=== PATIENT | female | born 1960 | race Caucasian/White ===

== ENCOUNTER → 2016-08-16 | Outpatient (CLI) | payer MEDICAID ==
[~2016-08-16] MED LIST: GADOBUTROL 10 ML VIAL IVP ONE
--- NOTE | 2016-08-16 18:03 | MR ---
MRI of the Abdomen (Without and With Contrast) at 1043 hours Clinical Indications: History of hepatitis C. Lesion seen on ultrasound within the liver. COMPARISON: Ultrasound July 20, 2016 Technique: Precontrast 2D FIESTA axial , FSE T2 breath-hold axial and coronal, in and out of phase a xial imaging, and T1 LAVA fat-suppressed imaging. Pre- and post contrast axial T1 fat-suppressed imag es before and at 1 minute, 3 minutes, 5 minutes and 10 minutes after 6 mL Gadavist were injected intr avenously without complication using a power injector. Findings: A 1 cm lesion is seen in the mid right lobe of the liver corresponding to the abnormality s een on ultrasound. This lesion has increased signal intensity on T2-weighted imaging. There is mild p eripheral enhancement which fills in on the more delayed imaging with an appearance suggestive of a b enign hemangioma. A 1 cm simple cyst is seen more inferiorly in the right lobe of the liver. No suspi cious liver lesion is visualized. Spleen is unremarkable. Both adrenal glands are normal in size and appearance. Pancreas is normal in signal intensity without evidence for mass. Both kidneys enhance no rmally without evidence for mass or hydronephrosis. No significant abnormal lymphadenopathy. Impression: 1 cm benign hemangioma right lobe of the liver. 1 cm benign hepatic cyst inferior right lobe of the liver
== END ==
LOC: FIMAGING 10:19
PROVIDERS: ATTEND Internal Medicine Gastroenterology
DX: B18.2 Chronic viral hepatitis C (principal); K76.89 Other specified diseases of liver
CPT/HCPCS: A9585

== ENCOUNTER 2017-11-10 12:12 | Emergency (ER) | payer MEDICAID ==
[2017-11-10] MEDS ORDERED: ONDANSETRON DISINTEGRATING 4 MG TAB PO ONE (12:19)
--- NOTE | 2017-11-10 14:21 | EDPHY ---
General Time Seen by Provider: 11/10/17 14:11 Narrative: CHIEF COMPLAINT: Abdominal pain HISTORY OF PRESENT ILLNESS: Patient presents with complaints of abdominal pain, decreased appetite decreased insomnia. She reports long history of alcohol abuse, attempting to discontinue the slowly. She originally stated that she drinks 1 glass of wine per night, but now admits that it is actually 1-2 bottles per day of worn. She last had intake of alcohol round 1:30 a.m. After that her symptoms worsen, that she had a drink this morning around 6:45 a.m.. She has had some vomiting. She has epigastric abdominal pain. It is worse with palpation and movement. Minimal improvement rest. No chest pain or shortness of breath. No cough. No headache, neck pain or stiffness, fever chills. No trauma or injury. No previous abdominal surgeries other than D and C remotely. No other associated complaints or modifying factors REVIEW OF SYSTEMS: Ten systems reviewed and are negative unless otherwise noted in the HPI PCP: None currently SPECIALISTS: None PAST MEDICAL HISTORY: Alcohol abuse, hep C orthopedic injuries, anxiety PAST SURGICAL HISTORY: Right wrist surgery remotely. ENT remotely. SOCIAL HISTORY: Daily alcohol use. Denies any drug use. FAMILY HISTORY: Noncontributory EXAMINATION General Appearance: Alert, no distress. Well-developed well-nourished. Head: normocephalic, atraumatic Eyes: Pupils equal and round, no conjunctival pallor or injection ENT, Mouth: Mucous membranes moist. Airway patent Neck: Normal inspection, supple, non-tender Respiratory: Lungs are clear to auscultation. No wheeze, rhonchi or crackles Cardiovascular: Regular rate and rhythm. No murmur. Gastrointestinal: Abdomen is soft and nondistended. There is tenderness in the epigastrium, right upper quadrant left upper quadrant. Back: non-tender, no bony abnormalities Neurological: GCS 15. A&O, nonfocal, mild tremor but normal mentation. Strength is symmetric in all 4 limbs. No pronator drift. Normal finger-to- nose. Skin: Warm and dry, no rash. No petechiae or purpura Extremities: Nontender, no pedal edema Psychiatric: Mood and affect normal DIFFERENTIAL DIAGNOSES: Including but not limited to gastritis, enteritis, colitis, gastroenteritis, cholecystitis, cholelithiasis, alcohol withdrawal, DT MDM: 2:15 p.m. Abdominal pain with nausea vomiting and some diarrhea. She also has history of alcohol use and may be withdrawing from this. Her vital signs are stable with no signs of delirium tremens or encephalopathy. 2:50 p.m. Patient re-evaluated. She is now admitting to 1-2 bottles of wine per day with abrupt cessation this morning. She still has no chest pain. Laboratory studies are pending. 3:00 p.m. CBC reveals hemoconcentration no leukocytosis. Chemistry is consistent with her alcohol abuse but does have some elevation of the total bilirubin. Urinalysis pending. I will discuss with Dr. Cabral. 3:30 p.m. Initial CIWA score is 5. I have discussed with Dr. Cabral. We will proceed with CT scan abdomen pelvis. 4:30 p.m. Notified by radiologist. CT scan reveals some abnormalities in the liver that appear to be chronic from previous MRI. Appendix is normal appearing. No other acute finding. 4:45 p.m. Patient re-evaluated. She says she is feeling much better but a little shaky. I do not appreciate any tremor. I discussed CT scan findings. I discussed the mildly abnormal liver function test. I offered transportation to the [facility] for monitor detoxification. She has declined this. Her serum alcohol level is negative. She wants to go home. She says her pain is tolerable. We discussed the risks, benefits and alternatives including alcohol withdrawal with subsequent delirium tremens and/or seizure activity. I also discussed that she needs to have her liver enzymes rechecked soon with her primary care physician. She says she is willing to assume this risk and has Ativan at home to avoid this scenario. I do feel she is capable making this decision at this time. I have ordered 1 more dose of IV Ativan to be given before she is discharged home and she has a ride who will be at bedside to take her home. We discussed ED precautions for any return of her abdominal pain, vomiting, chest pain, or alcohol withdrawal symptoms. She is comfortable with this and she is discharged home stable condition. SUPERVISION: Patient was independently examined, but I discussed the case with my secondary supervising physician Dr. Cabral - Diagnostics Imaging Results: Imaging Impressions Abdomen CT 11/10/17 15:43 Impression: 1. Sigmoid diverticulosis without diverticulitis. 2. No CT evidence of appendicitis, abscess or bowel obstruction. 3. No new hepatic lesions or biliary obstruction. 4. Nonobstructing right nephrolithiasis. 5. Vertebral compression fractures with prior thoracolumbar fusion, similar to previous study. 6. No pneumoperitoneum or drainable abscess. Findings and recommendations discussed with Emergency Department physician, José Miguel Wilson, at 1625 hour, 11/10/2017. Final report concurs with initial preliminary interpretation. - History Smoking Status: Light smoker - Objective Vital Signs: Initial Vital Signs Temperature (C) 99.0 F 11/10/17 12:16 Heart Rate 91 11/10/17 12:16 Respiratory Rate 26 H 11/10/17 12:16 Blood Pressure 150/99 H 11/10/17 12:16 O2 Sat (%) 100 11/10/17 12:16 O2 Delivery Mode Nasal Cannula O2 (L/minute) 2 Allergies/Adverse Reactions: amoxicillin Allergy (Verified 02/02/16 15:45) Penicillins Allergy (Verified 02/22/14 19:59) sulfamethoxazole [From Bactrim] Allergy (Verified 02/02/16 15:45) trimethoprim [From Bactrim] Allergy (Verified 02/02/16 15:45) Home Medications: Medication Instructions Recorded Ativan Unk Dose 02/21/14 Citalopram Unk Dose 02/21/14 Trazodone Unk Dose 02/21/14 Famotidine [Pepcid 20 MG (*)] 20 mg PO BID #20 tab 11/10/17 Sucralfate [Carafate Oral Liquid 100 mg PO TID #240 ml 11/10/17 100 mg/ml] Laboratory Results: Laboratory Results 11/10/17 14:23 11/10/17 14:23 11/10/17 11/10/17 11/10/17 16:20 15:29 14:33 WBC RBC Hgb Hct MCV MCH MCHC RDW Plt Count MPV Neut % (Auto) Lymph % (Auto) Mercer % (Auto) Eos % (Auto) Baso % (Auto) Nucleat RBC Rel Count Absolute Neuts (auto) Absolute Lymphs (auto) Absolute Monos (auto) Absolute Eos (auto) Absolute Basos (auto) Absolute Nucleated RBC Immature Gran % Immature Gran # Sodium Potassium Chloride Carbon Dioxide Anion Gap BUN Creatinine Estimated GFR Glucose Calcium Phosphorus Total Bilirubin Conjugated Bilirubin Unconjugated Bilirubin AST ALT Alkaline Phosphatase Total Protein Albumin Lipase Beta HCG, Qual Urine Color YELLOW Urine Appearance CLEAR Urine pH 6.0 (5.0-7.5) Ur Specific [place] 1.023 (1.002-1.030) Urine Protein NEGATIVE (NEGATIVE) Urine Ketones 1+ H (NEGATIVE) Urine Blood NEGATIVE (NEGATIVE) Urine Nitrate NEGATIVE (NEGATIVE) Urine Bilirubin NEGATIVE (NEGATIVE) Urine Urobilinogen NEGATIVE EU EU (0.2-1.0) Ur Leukocyte Esterase NEGATIVE (NEGATIVE) Urine Glucose NEGATIVE (NEGATIVE) Nasal Influenza A PCR NEGATIVE FOR FLU A (NEGATIVE) Nasal Influenza B PCR NEGATIVE FOR FLU B (NEGATIVE) Ethyl Alcohol < 10 mg/dL mg/dL (0-10) 11/10/17 11/10/17 11/10/17 14:23 14:23 14:23 WBC 7.24 10^3/uL 10^3/uL (3.80-9.50) RBC 5.66 10^6/uL H 10^6/uL (4.18-5.33) Hgb 18.4 g/dL H g/dL (12.6-16.3) Hct 51.7 % H % (38.0-47.0) MCV 91.3 fL fL (81.5-99.8) MCH 32.5 pg pg (27.9-34.1) MCHC 35.6 g/dL g/dL (32.4-36.7) RDW 12.6 % % (11.5-15.2) Plt Count 325 10^3/uL 10^3/uL (150-400) MPV 9.0 fL fL (8.7-11.7) Neut % (Auto) 82.6 % H % (39.3-74.2) Lymph % (Auto) 11.9 % L % (15.0-45.0) Mercer % (Auto) 3.6 % L % (4.5-13.0) Eos % (Auto) 0.8 % % (0.6-7.6) Baso % (Auto) 0.7 % % (0.3-1.7) Nucleat RBC Rel Count 0.0 % % (0.0-0.2) Absolute Neuts (auto) 5.98 10^3/uL 10^3/uL (1.70-6.50) Absolute Lymphs (auto) 0.86 10^3/uL L 10^3/uL (1.00-3.00) Absolute Monos (auto) 0.26 10^3/uL L 10^3/uL (0.30-0.80) Absolute Eos (auto) 0.06 10^3/uL 10^3/uL (0.03-0.40) Absolute Basos (auto) 0.05 10^3/uL 10^3/uL (0.02-0.10) Absolute Nucleated RBC 0.00 10^3/uL 10^3/uL (0-0.01) Immature Gran % 0.4 % % (0.0-1.1) Immature Gran # 0.03 10^3/uL 10^3/uL (0.00-0.10) Sodium 136 mEq/L mEq/L (135-145) Potassium 4.2 mEq/L mEq/L (3.5-5.2) Chloride 96 mEq/L L mEq/L (97-110) Carbon Dioxide 19 mEq/l L mEq/l (22-31) Anion Gap 21 mEq/L H mEq/L (8-16) BUN 22 mg/dL mg/dL (7-23) Creatinine 0.6 mg/dL mg/dL (0.6-1.0) Estimated GFR > 60 Glucose 118 mg/dL H mg/dL (70-100) Calcium 11.5 mg/dL H mg/dL (8.5-10.4) Phosphorus 2.1 mg/dL L mg/dL (2.5-4.5) Total Bilirubin 1.6 mg/dL H mg/dL (0.1-1.4) Conjugated Bilirubin 0.5 mg/dL mg/dL (0.0-0.5) Unconjugated Bilirubin 1.1 mg/dL mg/dL (0.0-1.1) AST 179 IU/L H IU/L (14-46) ALT 164 IU/L H IU/L (9-52) Alkaline Phosphatase 178 IU/L H IU/L (38-126) Total Protein 10.7 g/dL H g/dL (6.3-8.2) Albumin 5.6 g/dL H g/dL (3.5-5.0) Lipase 207 IU/L IU/L (23-300) Beta HCG, Qual NEGATIVE Urine Color Urine Appearance Urine pH Ur Specific [place] Urine Protein Urine Ketones Urine Blood Urine Nitrate Urine Bilirubin Urine Urobilinogen Ur Leukocyte Esterase Urine Glucose Nasal Influenza A PCR Nasal Influenza B PCR Ethyl Alcohol Medications Given: Discontinued Medications Sodium Chloride (Ns) 1,000 mls @ 0 mls/hr IV ONCE ONE; Wide Open PRN Reason: Protocol Stop: 11/10/17 14:26 Last Admin: 11/10/17 14:26 Dose: 1,000 mls Sodium Chloride (Ns) 1,000 mls @ 0 mls/hr IV EDNOW ONE; Wide Open PRN Reason: Protocol Stop: 11/10/17 14:48 Last Admin: 11/10/17 15:30 Dose: 1,000 mls Sodium Chloride (Ns) 1,000 mls @ 0 mls/hr IV EDNOW ONE; Wide Open PRN Reason: Protocol Stop: 11/10/17 15:32 Last Admin: 11/10/17 17:08 Dose: Not Given Lorazepam (Ativan Injection) 2 mg IVP EDNOW ONE Stop: 11/10/17 14:48 Last Admin: 11/10/17 14:54 Dose: 2 mg Ondansetron HCl (Zofran Odt) 4 mg PO EDNOW ONE Stop: 11/10/17 12:20 Last Admin: 11/10/17 12:20 Dose: 4 mg Departure - Departure Disposition: Home, Routine, Self-Care Clinical Impression: Alcohol abuse, Elevated liver enzymes Alcoholic gastritis Qualifiers: Chronicity: acute Gastritis bleeding: without bleeding Qualified Code(s): K29.20 - Alcoholic gastritis without bleeding Condition: Good Instructions: Gastritis (ED), Clear Liquid Diet (ED), Abuse of Alcohol (ED) Additional Instructions: 1. Clear liquid diet for the next 24-48 hours 2. Return to emergency department if you change her mind on monitored detoxification at the [facility] 3. Contact her primary care physician regarding alcohol cessation, abnormal liver function test 4. Return to emergency department for any chest pain, shortness of breath, return of your abdominal pain, vomiting or diarrhea Referrals: Laine Baker MD [Primary Care Provider] - As per Instructions (2-3 days for repeat liver function test) Prescriptions: Famotidine [Pepcid 20 MG (*)] 20 mg PO BID #20 tab Sucralfate [Carafate Oral Liquid 100 mg/ml] 100 mg PO TID #240 ml
[2017-11-10] MEDS ORDERED: NS 1,000 ML IV ONE ×3 (14:25→15:31)
[2017-11-10 14:31] LABS: PLATELET COUNT 325 10^3/uL (150-400)
[2017-11-10] MEDS ORDERED: LORazepam 2 MG/ML INJ IVP ONE ×2 (14:47→17:08)
[2017-11-10] MEDS ORDERED: IOPAMIDOL (ISOVUE-300) 100 ML BTL ONE (15:49)
[2017-11-10 17:24] VITALS: BP 153/90
== END 2017-11-10 17:31 | disposition home or self-care (01) ==
DX: K29.20 Alcoholic gastritis without bleeding (principal); F10.10 Alcohol abuse, uncomplicated; R74.8 Abnormal levels of other serum enzymes; F17.200 Nicotine dependence, unspecified, uncomplicated; E86.9 Volume depletion, unspecified
CPT/HCPCS: 96374; G0480; J2060; Q9967

== ENCOUNTER → 2018-10-25 | Outpatient (CLI) | payer MEDICAID | LOC: FIMAGING 11:05 | PROVIDERS: ATTEND Internal Medicine Gastroenterology | DX: K76.89 Other specified diseases of liver (principal) ==